=== PATIENT | female | born 1950 | race Caucasian/White ===

== ENCOUNTER 2019-09-25 15:57 | Inpatient (IN) ==
[2019-09-25] MEDS ORDERED: NS 1,000 ML IV ONE (16:28)
[2019-09-25] MEDS ORDERED: HUMULIN R IV ONE (16:28)
[2019-09-25] MEDS ORDERED: CARDIZEM IV ONE (16:28)
[2019-09-25] MEDS ORDERED: ZOSYN 4.5 GM in NS 100 ML IV ONE (16:28)
[2019-09-25] MEDS ORDERED: VANCOMYCIN 1 GM/NS 1 GM/250 ML IVPB IV ONE (16:28)
[2019-09-25] MEDS ORDERED: LOVENOX 1 MG/KG SUBQ ONE (16:30)
[2019-09-25 16:49] LABS: BE 2.1 mmoll (-3.0-3.0); BLOOD TYPE ARTERIAL; HCO3-(ACT) 26.5 mmoll (20.0-26.0); O2(CT) 19.2 mL/dL (15.0-23.0); PCO2(98.6) 35 mmHg (35-45); PO2(98.6) 86 mmHg (60-100); SAMPLE BLOOD; SAO2 97.6 % (95.0-100.0); THB 14.3 g/dL (11.5-17.4); pH(98.6) 7.47 (7.35-7.45)
[2019-09-25 16:50] LABS: ALLEN TEST NO; MODALITY ROOM AIR
--- NOTE | 2019-09-25 16:53 | EKG Report ---
Test Performed on : 09/25/2019 4:14:23 PM Test Reason : tachycardia Blood Pressure : / mmHG Vent. Rate : 154 BPM Atrial Rate : 159 BPM P-R Int : 000 ms QRS Dur : 108 ms QT Int : 284 ms P-R-T Axes : 000 081 -33 degrees QTc Int : 454 ms Atrial fibrillation. with rapid ventricular response. Right bundle branch block T wave abnormality, consider inferior ischemia Abnormal ECG No previous ECGs available Unconfirmed Result
[2019-09-25] MEDS ORDERED: HUMULIN R (PARKWAY) ONE (17:07)
[2019-09-25] MEDS ORDERED: LOVENOX SUBQ ONE (17:45)
--- NOTE | 2019-09-25 17:52 | Diag Imaging Result Doc PS360 ---
EXAM: CHEST-1 VIEW 09/25/2019 HISTORY: sob TECHNIQUE: AP portable at 1742 COMMENT: There are no previous studies. There is no evidence of acute cardiac or pulmonary disease. IMPRESSION: No acute disease. Electronically signed by Wili Dugan 09/25/2019 5:50 PM
[2019-09-25 17:53] LABS: INFLUENZA A NEGATIVE (NEGATIVE); INFLUENZA B NEGATIVE (NEGATIVE)
[2019-09-25 17:54] LABS: INR 0.85
[2019-09-25 18:00] LABS: BASO# 0.01 X1000 (0.0-0.2); BASO% 0.1 % (0.0-0.8); HEMATOCRIT 42.9 % (37.0-47.0); HEMOGLOBIN 14.1 g/dL (12.0-16.0); IMM GRAN% 1.4 % (0.0-0.5); LYMPH# 0.58 X1000 (1.2-3.4); LYMPH% 4.1 % (20.5-51.1); MCHC 32.9 g/dL (33-37); MCV 91.3 FL (81-99); MONO# 0.57 X1000 (0.11-0.59); MPV 10.5 FL (7.4-10.4); NEUT# 12.85 X1000 (1.4-6.5); NEUT% 90.4 % (42.2-75.2); PLT 237 X1000 (130-400); RDW 12.1 % (11.5-14.5); WBC 14.21 X1000 (4.8-10.8)
[2019-09-25] MEDS ORDERED: LOPRESSOR IV ONE (18:04)
[2019-09-25 18:10] LABS: ESTIMATED GFR > 60
[2019-09-25 18:18] LABS: AGAP 18; ALBUMIN 3.9 g/dL (3.5-5.0); ALKALINE PHOSPHATASE 189 U/L (32-104); BUN 50 mg/dL (8-22); CALCIUM 9.5 mg/dL (8.8-10.2); CHLORIDE 92 mmol/L (98-107); CK PROFILE 76 U/L (24-173); COSMO 298; CREATININE 0.9 mg/dL (0.5-0.9); GLUCOSE 455 mg/dL (70-104); GOT 56 U/L (10-30); GPT 154 U/L (10-36); MAGNESIUM 2.6 mg/dL (1.5-2.7); POTASSIUM 5.1 mmol/L (3.5-5.1); SODIUM 132 mmol/L (136-145); TCO2 21 mmol/L (25-35); TOTAL PROTEIN 6.4 g/dL (6.3-8.3)
--- NOTE | 2019-09-25 18:24 | PROVIDER DOCUMENTATION ---
This chart was entered by Josseline Mckeon Scribe, acting as scribe for Roby Christensen MD. 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 pt arrived w/ rapid HR in 170s and in afib. pt has no hx of afib. does not feel palpitations. pt is seen by wound clinic every tues for ulcers on rt leg. pt has been on steroids rx by Dr. Soto. hx of dm. no fever. Location of Pain/Injury: reports: lower extremity (ulcers rt leg) Pain Radiation: reports: no radiation Severity: reports: mild Onset/Duration: reports: other Timing: reports: still present Context/Activities at Onset: reports: none Modifying Factors: improves with: nothing Associated Symptoms: reports: cough, shortness of breath. denies: fever/chills Review of Systems - Adult - REVIEW OF SYSTEMS - ADULT Constitutional: reports: no symptoms reported. denies: chills, fever, fatique Eyes: reports: no symptoms reported Ears, Nose, Mouth & Throat: reports: no symptoms reported Cardiovascular: reports: see HPI, irregular heart rate (new onset afib). denies: chest pain, poor circulation, syncope Respiratory: reports: see HPI, cough, shortness of breath (mild). denies: hemoptysis, pleurisy, wheezing Gastrointestinal: reports: no symptoms reported Genitourinary: reports: no symptoms reported Musculoskeletal: reports: no symptoms reported Integumentary: reports: see HPI, skin sores/ulcer (on rt leg, followed by wound care), other (skin tears left hand). denies: hives, itching, skin thickening Neurological: reports: see HPI, loss of balance (fall at work today no injury). denies: dizziness/vertigo, headache/migraines, syncope, tremors Psychiatric: reports: no symptoms reported Endocrine: reports: no symptoms reported Hematologic/Lymphatic: reports: no symptoms reported Allergic/Immunologic: reports: no symptoms reported All Other Systems: Reviewed and Negative Past History - Adult - PAST MEDICAL HISTORY-ADULT Review of Records: reports: Nursing Assessment Review, Medications Reviewed, Social history reviewed & non-contributory. Major Childhood Illnesses: reports: denies history Cardiovascular: reports: denies history Respiratory: reports: denies history Gastrointestinal: reports: denies history Obstetrical/Gynecological: reports: denies history Genitourinary: reports: denies history Musculoskeletal: reports: denies history Neurological: reports: denies history Endocrine/Immune: reports: Diabetes Other Conditions: reports: denies history - IMMUNIZATION STATUS Childhood Immunizations: See Nurse Assessment Flu Vaccine: See Nurse Assessment - FAMILY HISTORY Family History: reviewed, not pertinent Physical Exam-General - PHYSICAL EXAM-ADULT Initial Vital Signs Reviewed: Yes - CONSTITUTIONAL General Appearance: alert, no apparent distress. negative: cachetic, lethargic, slow to respond - EYES Eyes: PERRL/EOMI - HEAD, EARS, NOSE, MOUTH & THROAT HENMT: normocephalic/atraumatic, moist mucous membranes - NECK Neck: non-tender, full range of motion, supple, normal inspection - RESPIRATORY Respiratory: chest non-tender, lungs clear, no pleuratic chest pain, no respi ratory distress, no accessory muscle use, decreased breath sounds (diminshed). negative: normal breath sounds, respiratory distress, crackles, rales, rhonchi - CARDIOVASCULAR Cardiovascular: normal peripheral pulses, no edema, no gallop, no JVD, no murmur , tachycardia, irregularly irregular. negative: regular rate, rhythm, JVD, bradycardia, friction rub - GASTROINTESTINAL (ABDOMEN) Abdominal Exam: normal bowel sounds, non tender, soft - MUSCULOSKELETAL Back Exam: normal inspection Extremity: normal range of motion, non-tender, normal inspection, no pedal edema , no calf tenderness, normal capillary refill, pelvis stable - SKIN Integumentary: normal color, normal turgor, warm/dry, other (4 healing ulcer on rt leg, some erythema and d/c. skin tear left hand, bandage in place.). negative: abrasion(s), ecchymosis, rash - NEUROLOGIC Neurologic: grossly normal, no motor/sensory deficits - PSYCHIATRIC Psych/Mental Status: normal mood/affect, normal thought content, normal thought process, oriented x 3 Progress - PLAN OF CARE/RESULTS Progress/Plan/Lab Results: Vital Signs - 8 hr 09/25/19 16:03 Temperature 97.7 F Pulse Rate 167 H Respiratory Rate 20 Blood Pressure 118/81 O2 Sat by Pulse Oximetry 97 Result Diagrams: 09/25/19 17:26 09/25/19 17:26 - REASSESSMENT Reassessment #1 Time Reassessed: 18:05 Status: improving (HR 109 after IV cardizem, still in AFIB. Will administer IV lopressor to further lower rate. Awaiting labs.) - EKG 1 Time of EKG reading by physician:: 16:15 EKG Read and Signed by:: Roby Christensen EKG Interpretation (*Must complete 3 of following elements*): Abnormal Rate: 154 Rhythm: afib w/ rvr [place]: normal QRS: RBB PA Interval: normal ST Wave: non-specific ST changes Prior EKG Comparison: no prior EKG 2 Time of EKG reading by physician:: 18:23 EKG Read and Signed by:: Roby Christensen EKG Interpretation (*Must complete 3 of following elements*): Abnormal Rate: 109 Rhythm: afib QRS: RBB, poor R wave progression ST Wave: non-specific ST changes Prior EKG Comparison: changes noted (decreased rate) - XRAY 1 XRAY Study: Chest Impression: Normal, See EMR Report ( EXAM: CHEST-1 VIEW 09/25/2019 HISTORY: sob TECHNIQUE: AP portable at 1742 COMMENT: There are no previous studies. There is no evidence of acute cardiac or pulmonary disease. IMPRESSION: No acute disease. Electronically signed by Wili Dugan 09/25/2019 5:50 PM) Comparison with other Films: no prior study - CONSULTS/PCP/HOSPITALIST Notification #1 *Consult/PCP/Hospitalist*: Marilyn Time Discussed: 18:05 Consult Disposition: Will see in ED, Admit Departure - Departure Date of Disposition Decision: 09/25/19 Time of Disposition Decision: 18:06 DIAGNOSIS: New onset a-fib, Atrial fibrillation with RVR, Diabetic ulcer of right lower leg associated with type 2 diabetes mellitus, limited to breakdown of skin, Syncope, near, Congestive heart failure of unknown etiology Disposition: ADMITTED INPATIENT 09 Certified Medical Emergency: Emergent Condition: Stable Referrals and Follow-Ups: Raven Leigh CRNP [Primary Care Provider] - - Critical Care Note This patient required my direct & personal management of CC.: Yes Total Time (mins): 45 Critical Care Statement: This patient required my direct personal management to treat or rule out processes, the absence of which, could potentiallly result in sudden, clinically significant life or limb threatening deterioration. Attestation - Physician/ ZARI Attestation Patient care was provided by Advanced Practice Provider:: No The physician spent face to face time with patient:: Yes Advanced Practice Provider documentation review:: Supervising physician onsite and consulted in the evaluation and care of this patient. The physician did have a face to face encounter with the patient. This chart was documented by the indicated scribe, (Josseline Mckeon Scribe) and accurately reflects the services I performed and decisions made by me, Roby Christensen MD, as attested by the provider's signature.
--- NOTE | 2019-09-25 18:32 | EKG Report ---
Test Performed on : 09/25/2019 6:19:18 PM Test Reason : repeat for conversion Blood Pressure : / mmHG Vent. Rate : 109 BPM Atrial Rate : 061 BPM P-R Int : 000 ms QRS Dur : 106 ms QT Int : 380 ms P-R-T Axes : 000 080 -13 degrees QTc Int : 511 ms Undetermined rhythm Incomplete right bundle branch block Nonspecific T wave abnormality Abnormal ECG When compared with ECG of 25-SEP-2019 16:14, (Unconfirmed) Current undetermined rhythm precludes rhythm comparison, needs review Unconfirmed Result
[2019-09-25 18:57] LABS: PTT < 20.0 Seconds (22.3-41.8)
[2019-09-25 19:05] LABS: URINE SOURCE CLEAN CATCH
[2019-09-25 19:07] LABS: BILIRUBIN URINE NEGATIVE (NEGATIVE); BLOOD URINE NEGATIVE (NEGATIVE); COLOR YELLOW; GLUCOSE URINE >1000 mg/dL (NEGATIVE); KETONE URINE TRACE mg/dL (NEGATIVE); LEUKOCYTES URINE SMALL (NEGATIVE); NITRITE URINE NEGATIVE (NEGATIVE); PROTEIN URINE NEGATIVE (NEGATIVE); SP GRAVITY URINE 1.028; TURBIDITY URINE CLEAR (CLEAR); UROBILINOGEN URINE NORMAL (NORMAL)
[2019-09-25 19:08] LABS: UR EPITHELIAL CELLS <10 /HPF (<10); URINE BACTERIA 2+ /HPF; URINE RBC <10 /HPF (<10); URINE WBC <10 /HPF (<10)
[2019-09-25] MEDS ORDERED: HUMALOG (PARKWAY) SUBQ SCH (21:00)
[2019-09-25] MEDS ORDERED: ZOFRAN IV PRN (21:05)
[2019-09-25] MEDS ORDERED: TYLENOL PO PRN (21:05)
[2019-09-25] MEDS: HUMALOG SUBQ SCH (22:39)
[2019-09-25] MEDS: CARDIZEM 100 MG/NS 100 MG/100 ML IVPB IV SCH (23:39)
[2019-09-26] MEDS ORDERED: CALMOSEPTINE OINTMENT TOP PRN (00:33)
[2019-09-26] MEDS: ZOSYN 3.375 GM in NS 50 ML IV SCH ×5 (01:52→22:42)
[2019-09-26] MEDS: NS 1,000 ML IV SCH ×3 (01:53→17:12)
--- NOTE | 2019-09-26 02:05 | HISTORY AND PHYSICAL ---
CHIEF COMPLAINT: Palpitations. HISTORY OF PRESENT ILLNESS: Patient is a 69-year-old female who noted that she fell backwards today while she was at work. She had some minor skin tears, shortness of breath. Coughing for a week. Notes she went to the [facility] today for a prescheduled appointment and was noted that she had an elevated heart rate and was asked to come to the ER where she was noted to have heart rate of 170s and was in atrial fibrillation. ALLERGIES: Iodine and shellfish. REVIEW OF SYSTEMS: As noted above. Patient notes that her heart rate has been elevated today, but denies any previous elevations in her heart rate. Denies any previous palpitations, chest pain. Denies any known coronary artery disease. Denies shortness of breath, dysuria, urinary frequency. Denies hesitancy, polyuria, polydipsia. Denies skin rashes, weight loss or weight gain. Notes that she has been tired and fatigued. She fell today after losing her balance. PAST MEDICAL HISTORY: Diabetes. FAMILY HISTORY: Noncontributory. SOCIAL HISTORY: Patient lives at home. Denies smoking. Does not drink or use illicit substances. PHYSICAL EXAMINATION: VITAL SIGNS: Reviewed. Temperature 97.7 degrees, pulse 167, currently 101 after her Cardizem, respiratory 20, BP 118/81. GENERAL: Patient is awake, alert. She is in no current respiratory distress. HEENT: Normocephalic. NECK: Supple. CARDIOVASCULAR: Irregular rate. Irregular rhythm. CHEST: Clear and nonlabored. ABDOMEN: Soft, nondistended. EXTREMITIES: She moves all extremities. SKIN: She has an Unna boot on the right leg. Left lower extremity skin is shiny, positive edema. NEUROLOGIC: She is awake, alert, oriented, pleasant to talk with. LABORATORIES: WBCs 14. Glucose 455. ASSESSMENT: 1. New onset atrial fibrillation with rapid ventricular response. 2. Diabetic ulcer, right lower extremity. 3. Syncope. 4. Congestive heart failure. 5. Diabetes. PLAN: We are going to admit the patient to the hospital. Fluids rate control, sliding scale insulin, antibiotics, and we will follow. We will continue with wound [*] cc: Rupert Sanders MD
[2019-09-26 06:51] LABS: HEMATOCRIT 39.2 % (37.0-47.0); HEMOGLOBIN 12.7 g/dL (12.0-16.0); MCHC 32.4 g/dL (33-37); MCV 92.5 FL (81-99); MPV 10.2 FL (7.4-10.4); RBC 4.24 XMIL (4.2-5.4); RDW 12.1 % (11.5-14.5); WBC 12.66 X1000 (4.8-10.8)
[2019-09-26 07:16] LABS: AGAP 11; ALB/GLOB RATIO 1.6; ALBUMIN 3.2 g/dL (3.5-5.0); ALKALINE PHOSPHATASE 133 U/L (32-104); BUN 38 mg/dL (8-22); CALCIUM 8.6 mg/dL (8.8-10.2); CHLORIDE 101 mmol/L (98-107); COSMO 288; CREATININE 0.9 mg/dL (0.5-0.9); ESTIMATED GFR > 60; GLUCOSE 87 mg/dL (70-104); GOT 39 U/L (10-30); GPT 118 U/L (10-36); POTASSIUM 4.7 mmol/L (3.5-5.1); SODIUM 140 mmol/L (136-145); TCO2 28 mmol/L (25-35); TOTAL BILIRUBIN 0.62 mg/dL (0.20-1.00); TOTAL PROTEIN 5.2 g/dL (6.3-8.3)
[2019-09-26] MEDS: LOVENOX SUBQ SCH ×2 (08:08→21:31)
[2019-09-26] MEDS: HUMALOG SUBQ SCH ×4 (08:10→21:22)
[2019-09-26] MEDS: CARDIZEM 100 MG/NS 100 MG/100 ML IVPB IV SCH ×2 (08:35→18:48)
--- NOTE | 2019-09-26 09:31 | CARDIOLOGY CONSULTATION ---
DATE: 09/26/2019 CHIEF COMPLAINT ON PRESENTATION: Patient was at Wound Care and was told that she had an irregular heart rate. HISTORY OF PRESENT ILLNESS: Ms Larsen is a 69-year-old female with a history of diabetes and chronic lower extremity wounds. She was at Wound Care yesterday getting her usual care when she was told by the staff there that she had an irregular heart rate and was told to be evaluated in the ER. On presentation, she was noted to be in new onset atrial fibrillation with a rate of 167 beats per minute. The patient denies any overt chest pain, sensation of palpitations or shortness of breath. She is minimally active at home. She does not really do anything other than her activities of daily living. She does not participate in daily exercise. She denies any overt orthopnea. She has not been having any chest pain. PAST MEDICAL HISTORY: 1. Significant for diabetes. 2. Chronic lower extremity wounds. 3. Hyperlipidemia. 4. Hypertension. 5. Diabetic neuropathy. SOCIAL HISTORY: She does not currently smoke. 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 She does not drink alcohol. FAMILY HISTORY: Hypertension. REVIEW OF SYSTEMS: A 10 system review of systems is negative except for those things mentioned in HPI. PHYSICAL EXAMINATION: Vital signs: She is afebrile. Heart rate is 96, blood pressure 126/71. Generally: She is in no acute distress. HEENT: Oropharynx is moist. Poor dentition. Eye examination shows pink conjunctivae, white sclerae. Neck: No obvious thyromegaly or thyroid tenderness. Cardiovascular: She sounds to be in an irregularly irregular rhythm. This is consistent with atrial fibrillation on her telemetry. She has no lower extremity edema. She has a bandaged wounds on her bilateral lower extremities. Chest: Sounds relatively clear. She has no increased work of breathing. Abdomen: Soft, nontender, nondistended. She has no obvious organomegaly. Skin: Warm and dry throughout without any rashes. Neurological: She is moving all extremities well. She has no lateralizing deficits. PERTINENT DATA: Initial EKG on the at 4:14 p.m. shows atrial fibrillation, rate of 154 beats per minute, right bundle branch block is present. Her subsequent EKG on the at 6:19 again shows atrial fibrillation, right bundle branch block, rate of 109 beats per minute. She had a chest x-ray that demonstrates no evidence of acute disease. Laboratory data shows a white count of 12.6, hematocrit of 39, platelet count of 195,000. Her sodium today is 140, potassium is 4.7, her BUN is 38, creatinine 0.9, yesterday was 58 and 0.9 respectively. Her glucose yesterday was 455 with a normal anion gap. Her AST and ALT are 39 and 118 respectively, which has improved slightly. Her albumin is 3.2. Magnesium level yesterday was 2.6. She had a urinalysis with a small amount of leukocytes, trace ketones, 2+ bacteria. Her influenza screen was negative. She has a TSH pending as well as an echocardiogram. ASSESSMENT: Ms. Larsen is a 69-year-old white female who presented with new onset atrial fibrillation. PLAN: She is on anticoagulation right now on the form of Lovenox. We will continue for the time being. We will plan on cardioversion today. Risks, benefits, and alternatives to NICOLE cardioversion have been discussed with the patient and she agrees to proceed. Presently, she has no complaints. Further recommendations to follow the procedure. cc: MD Inocencio Monique MD
--- NOTE | 2019-09-26 14:31 | ECHO REPORT ---
ORDER DATE: 09/26/2019 INTERPRETING PHYSICIAN: Carlos Salmeron MD. ECHOCARDIOGRAPHIC MEASUREMENTS: 1. Interventricular septum 1.0. 2. Left ventricular posterior wall 0.8. 3. Diastolic diameter 4.5. 4. Left atrium 4.0. 5. Aorta 2.6. SUMMARY OF THE 2-DIMENSIONAL FINDINGS: 1. Aortic valve leaflets are trileaflet. 2. Pulmonic valve is normal. Trace pulmonary regurgitation noted. 3. Tricuspid valve is normal. 4. Mitral valve is normal. There is left atrial enlargement. 5. There is mild mitral regurgitation. Mild tricuspid regurgitation. Peak velocity across the tricuspid valve is 2.6 m/sec. Pulmonary artery systolic pressure of 36 mmHg. 6. Peak velocity across the aortic valve less than 2 m/sec. There is no aortic stenosis. There is mild aortic regurgitation. 7. Atrial fibrillation is noted. 8. Normal left ventricular cavity size. Estimated ejection fraction of 65%. 9. In the right atrium, prominent echogenic structure noted measuring 1.4 x 2.8 cm. This could be a remnant of the eustachian valve, however, it is more echogenic. Would recommend a transesophageal echocardiogram to better evaluate the structure. 10. There is no pericardial effusion. cc: MD Rupert Hernandez MD Alexis R. Penot, MD
[2019-09-26] MEDS: NORCO-7.5 PO PRN (15:22)
--- NOTE | 2019-09-26 15:57 | PROGRESS NOTE ---
DATE: 09/26/2019 SUBJECTIVE: Patient has no major complaints. OBJECTIVE: Blood pressure is 131/67, heart rate 96, respiratory rate 20, temperature 97.8 degrees, 98% on room air.Cardiovascular: Regular rate and rhythm. Pulmonary: Bilateral breath sounds, clear to auscultation. GI: Soft, nontender, nondistended. Bowel sounds are positive. PROBLEM LIST: 1. Atrial fibrillation with rapid ventricular response. We will continue treatment which includes Cardizem. I think she qualifies for anticoagulation. She is 69. She is female. She is diabetic and she is on Lovenox b.i.d. I may be able to switch her to something else. 2. The plan looks like is for cardioversion on Sunday. 3. Diabetes. We will continue regular medications and follow. 4. Chronic diabetic ulcers. She is getting Unna boots periodically. We will continue to follow. cc: Inocencio Olvera MD
[2019-09-27] MEDS: NORCO-7.5 PO PRN (00:21)
[2019-09-27] MEDS: CARDIZEM 100 MG/NS 100 MG/100 ML IVPB IV SCH ×2 (04:16→15:24)
[2019-09-27] MEDS: ZOSYN 3.375 GM in NS 50 ML IV SCH ×5 (04:16→21:31)
[2019-09-27 05:54] LABS: BASO# 0.01 X1000 (0.0-0.2); BASO% 0.1 % (0.0-0.8); EOS# 0.05 X1000 (0.0-0.7); EOS% 0.4 % (0.0-10.0); HEMATOCRIT 38.4 % (37.0-47.0); HEMOGLOBIN 12.4 g/dL (12.0-16.0); IMM GRAN# 0.13 X1000 (0.0-0.04); IMM GRAN% 1.1 % (0.0-0.5); LYMPH# 1.55 X1000 (1.2-3.4); LYMPH% 13.3 % (20.5-51.1); MCHC 32.3 g/dL (33-37); MONO% 4.3 % (1.7-9.3); NEUT# 9.45 X1000 (1.4-6.5); NEUT% 80.8 % (42.2-75.2); PLT 172 X1000 (130-400); RBC 4.13 XMIL (4.2-5.4); RDW 12.2 % (11.5-14.5); WBC 11.69 X1000 (4.8-10.8)
[2019-09-27] MEDS: HUMALOG SUBQ SCH ×4 (06:20→20:51)
[2019-09-27] MEDS: NS 1,000 ML IV SCH ×2 (11:42→15:24)
[2019-09-27] MEDS: LOVENOX SUBQ SCH ×2 (11:42→20:17)
--- NOTE | 2019-09-27 15:59 | PROGRESS NOTE ---
DATE: 09/27/2019 SUBJECTIVE: The patient denies chest discomfort or shortness of breath on room air. OBJECTIVE: Vital signs: Blood pressure 138/80, heart rate 98. Oxygen saturation 97%. HEENT: There is no significant jugular venous distention. Chest: Clear to auscultation. Cardiac Exam: Reveals an irregular rate and rhythm without appreciable murmur or gallop. There is no evidence of peripheral edema. LABORATORY DATA: Includes a white blood cell count 11.69, hematocrit 38.4, hemoglobin 12.4, platelet count 172. IMPRESSION: 1. Atrial fibrillation with rapid ventricular rate of unknown duration. She still has some mild tendency for tachycardia despite intravenous Cardizem. 2. Diabetes mellitus. 3. Chronic lower extremity wounds. 4. Hypertension. 5. Hyperlipidemia. 6. Diabetic neuropathy. RECOMMENDATIONS: 1. Continue intravenous Cardizem. 2. Add low-dose metoprolol. 3. Continue anticoagulation for NICOLE cardioversion planned for Sunday. This was discussed with the patient and her family. cc: MD Inocencio Lewis MD
[2019-09-27] MEDS: NEURONTIN PO SCH (17:00)
[2019-09-27] MEDS: PREDNISONE PO SCH (17:01)
--- NOTE | 2019-09-27 17:26 | PROGRESS NOTE ---
DATE: 09/27/2019 SUBJECTIVE: The patient has no major complaints. Jntur-ragy-urgj pain is better. Still gets some shortness of breath with exertion. OBJECTIVE: vital signs: Blood pressure 138/80, heart rate of 98, respiratory rate of 20, temperature 98 degrees, and 97% on room air. Cardiovascular: She is still irregularly irregular. Pulmonary: Bilateral breath sounds. Clear to auscultation. Gastrointestinal: Soft, nontender, nondistended. Bowel sounds are positive Lower Extremities: There is no peripheral edema. LABORATORIES: White count 11, hemoglobin and hematocrit 12 and 38, platelets of 172,000. Electrolytes today. PROBLEM LIST: 1. Atrial fibrillation with rapid ventricular response. She is still on a Cardizem drip. She is anticoagulated with Lovenox for the time being. Her CHADSVASC score is above 2 and will need chronic anticoagulation. Dr. Bach has added beta blockers today because she is still somewhat tachycardic and anticipate cardioversion on Sunday. 2. Type 2 diabetes. We will resume her regular medications. They had not been resumed until today. Bydureon and several of her other medications. DISPOSITION: Pending her clinical status. Her EF is intact. It looks like based on this echo she needs a NICOLE which I guess she is going to get on Sunday. We will continue to follow. cc: Inocencio Olvera MD [facility]
[2019-09-27] MEDS: LOPRESSOR PO SCH (20:17)
[2019-09-27] MEDS: LIPITOR PO SCH (20:17)
[2019-09-28] MEDS: CARDIZEM 100 MG/NS 100 MG/100 ML IVPB IV SCH ×2 (00:37→20:53)
[2019-09-28] MEDS: NS 1,000 ML IV SCH (03:27)
[2019-09-28] MEDS: ZOSYN 3.375 GM in NS 50 ML IV SCH ×5 (03:27→21:00)
[2019-09-28] MEDS: HUMALOG SUBQ SCH ×4 (06:14→20:53)
[2019-09-28 07:26] LABS: HEMATOCRIT 38.4 % (37.0-47.0); HEMOGLOBIN 12.2 g/dL (12.0-16.0); LYMPH# 1.09 X1000 (1.2-3.4); LYMPH% 9.3 % (20.5-51.1); MCH 29.6 PG (27-31); MCHC 31.8 g/dL (33-37); MCV 93.2 FL (81-99); MONO# 0.38 X1000 (0.11-0.59); MONO% 3.2 % (1.7-9.3); MPV 9.8 FL (7.4-10.4); PLT 189 X1000 (130-400); RBC 4.12 XMIL (4.2-5.4); RDW 12.1 % (11.5-14.5); WBC 11.78 X1000 (4.8-10.8)
[2019-09-28 08:18] LABS: LYMPHS 13 % (21-51); MONO 4 % (1-9); SEGS 83 % (42-75)
[2019-09-28] MEDS: VITAMIN D PO SCH (08:56)
[2019-09-28] MEDS: PROTONIX PO SCH (08:56)
[2019-09-28] MEDS: LOPRESSOR PO SCH ×2 (08:56→20:52)
[2019-09-28] MEDS: ASPIRIN PO SCH (08:56)
[2019-09-28] MEDS: LOVENOX SUBQ SCH ×2 (08:56→20:53)
[2019-09-28] MEDS: PREDNISONE PO SCH ×3 (08:56→17:01)
[2019-09-28] MEDS: NEURONTIN PO SCH ×3 (08:56→17:00)
[2019-09-28] MEDS: VITAMIN B-12 PO SCH (08:56)
[2019-09-28] MEDS: PATIENT'S OWN MED PO SCH (08:57)
[2019-09-28] MEDS: HYZAAR 100/12.5 MG TAB PO SCH (10:29)
[2019-09-28] MEDS ORDERED: LASIX IV ONE (15:39)
--- NOTE | 2019-09-28 16:08 | PROGRESS NOTE ---
DATE: 09/28/2019 SUBJECTIVE: Patient continues without chest discomfort or shortness of breath on room air. She remains in atrial fibrillation. OBJECTIVE: Vital Signs: Blood pressure 138/79, heart rate 93 and irregular with ECG monitor showing atrial fibrillation. Oxygen saturation 99% on room air. There is no significant jugular venous distention. Chest: Clear to auscultation. Cardiac: Reveals an irregular rate and rhythm without appreciable murmur or gallop. Extremities: There is no evidence of pedal edema. LABORATORY DATA: Includes a white blood cell count 11.7, hematocrit 38.4, hemoglobin 12.2, and platelet count 189,000. IMPRESSION: 1. Atrial fibrillation of unknown duration initially with rapid ventricular rate. Heart rate better controlled. 2. Diabetes mellitus. 3. Chronic lower extremity wounds. 4. Hypertension. 5. Hyperlipidemia. 6. Diabetic neuropathy. RECOMMENDATIONS: 1. Continue intravenous Cardizem. 2. Continue low-dose metoprolol. 3. Given persistence of atrial fibrillation, NICOLE cardioversion planned for tomorrow. This has been discussed with the patient and her family. cc: MD Inocencio Lewis MD
--- NOTE | 2019-09-28 16:23 | PROGRESS NOTE ---
DATE: 09/28/2019 SUBJECTIVE: The patient has no major complaints except she had bleeding in both her hands. OBJECTIVE: Vital signs: Blood pressure 138/79, heart rate of 93, respiratory rate of 18, temperature 97.6 degrees. LABORATORY DATA: White count 11, hemoglobin and hematocrit 12 and 38, platelets of 189,000. ASSESSMENT AND PLAN: 1. Atrial fibrillation with rapid ventricular response. She is still in atrial fibrillation. She is on Cardizem and metoprolol. 2. Type 2 diabetes. She is stable on her current medication. She is getting Bydureon. She has had that before. 3. Disposition. Plan is for cardioversion tomorrow and we will continue to monitor. She is anticoagulated but she had significant bleeding associated with it this morning. Her right hand is quite swollen. I am a little concerned about compartment syndrome, so we will continue to monitor and follow closely. cc: Inocencio Olvera MD
[2019-09-28] MEDS: LIPITOR PO SCH (20:52)
[2019-09-29] MEDS: ZOSYN 3.375 GM in NS 50 ML IV SCH ×3 (03:10→19:06)
[2019-09-29] MEDS: HUMALOG SUBQ SCH ×4 (07:04→21:54)
[2019-09-29 07:09] LABS: HEMATOCRIT 36.7 % (37.0-47.0); HEMOGLOBIN 11.9 g/dL (12.0-16.0); MCH 29.8 PG (27-31); MCHC 32.4 g/dL (33-37); MPV 10.1 FL (7.4-10.4); RBC 3.99 XMIL (4.2-5.4); WBC 9.89 X1000 (4.8-10.8)
[2019-09-29 07:12] LABS: INR 1.12; PROTIME 14.5 Seconds (11.0-16.0)
[2019-09-29 07:30] LABS: AGAP 11; BUN 18 mg/dL (8-22); CALCIUM 8.7 mg/dL (8.8-10.2); CHLORIDE 106 mmol/L (98-107); COSMO 286; CREATININE 0.7 mg/dL (0.5-0.9); ESTIMATED GFR > 60; GLUCOSE 143 mg/dL (70-104); POTASSIUM 3.4 mmol/L (3.5-5.1); SODIUM 141 mmol/L (136-145); TCO2 24 mmol/L (25-35)
[2019-09-29] MEDS ORDERED: XYLOCAINE 2% VISCOUS ONE (08:38)
[2019-09-29] MEDS ORDERED: SODIUM CHLORIDE 0.9% 20 ML ONE (08:38)
[2019-09-29] MEDS ORDERED: XYLOCAINE 4% TOPICAL SOLUTION ONE (08:38)
[2019-09-29] MEDS: PREDNISONE PO SCH ×3 (08:40→17:16)
[2019-09-29] MEDS: ASPIRIN PO SCH (08:40)
[2019-09-29] MEDS: PROTONIX PO SCH (08:40)
[2019-09-29] MEDS: VITAMIN B-12 PO SCH (08:40)
[2019-09-29] MEDS ORDERED: HURRICAINE SPRAY ONE (08:41)
[2019-09-29] MEDS: PATIENT'S OWN MED PO SCH (08:41)
[2019-09-29] MEDS: HYZAAR 100/12.5 MG TAB PO SCH (08:41)
[2019-09-29] MEDS: LOVENOX SUBQ SCH (08:41)
[2019-09-29] MEDS: LOPRESSOR PO SCH ×3 (08:41→21:53)
[2019-09-29] MEDS: VITAMIN D PO SCH (08:41)
[2019-09-29] MEDS: NEURONTIN PO SCH ×3 (08:44→17:17)
[2019-09-29] MEDS ORDERED: NS 1,000 ML ONE (09:12)
[2019-09-29] MEDS ORDERED: CLAVE TWINSITE 32 IN 11959 ONE (09:13)
[2019-09-29] MEDS ORDERED: ANESTHESIA PB SET 88 IN 5742 ONE (09:14)
[2019-09-29] MEDS ORDERED: XYLOCAINE-MPF 1% 5 ML ONE (09:29)
[2019-09-29] MEDS ORDERED: DIPRIVAN 1% ONE (09:29)
[2019-09-29] MEDS ORDERED: LOPRESSOR ONE (10:01)
--- NOTE | 2019-09-29 10:13 | EKG Report ---
Test Performed on : 09/29/2019 08:53:40 AM Test Reason : afib Blood Pressure : / mmHG Vent. Rate : 095 BPM Atrial Rate : 267 BPM P-R Int : 000 ms QRS Dur : 110 ms QT Int : 388 ms P-R-T Axes : 000 071 -20 degrees QTc Int : 487 ms Atrial fibrillation. Right bundle branch block T wave abnormality, consider inferior ischemia Abnormal ECG When compared with ECG of 25-SEP-2019 18:19, (Unconfirmed) Previous ECG has undetermined rhythm, needs review Confirmed by Rajinder Barraza MD ([id number]) on 09/30/2019 7:40:47 AM
--- NOTE | 2019-09-29 11:00 | Transesophageal Echocardiogram ---
DATE: 09/29/2019 PHYSICIAN: Dr. Armijo REQUESTING PHYSICIAN: CLINICAL INDICATIONS: The patient is with persistent atrial fibrillation. Dr. Salmeron and Dr. Mcmauns recommended NICOLE cardioversion. PROCEDURE: Transesophageal echocardiography DESCRIPTION: The benefits, risks and complications were already discussed with her. The patient came in to the cardiac refuse laborer and received intravenous anesthesia under the services of Dr. Fuller. The throat was anesthetized with viscous lidocaine and Hurricaine. The esophagus was intubated without difficulty. Multiple views of the cardiac structures were obtained. SUMMARY OF MAIN FINDINGS: The left ventricular systolic function appears to be at the lower limits of normal, estimated at 55%. The mitral valve opens normally. It shows moderately severe degree of regurgitation. Aortic valve shows sclerosis of the cusps without stenosis. There is mild degree of aortic regurgitation. Tricuspid valve showed mild degree of regurgitation. The right atrium and right ventricle appeared to be normal. Pulmonic valve is unremarkable. The interatrial septum is intact. There is no evidence of shunt from right to left or left to right. Agitated saline was injected. The left atrium is enlarged. The left atrial appendage is well visualized. It shows a spontaneous echocontrast of moderate severity. Flow velocities within the appendage are significantly decreased, less than 20 cm per second. No thrombus was noted. The flow in the pulmonary veins shows the typical pattern of predominant diastolic component as noted in persistent atrial fibrillation. There is no pericardial effusion. Descending thoracic aorta shows extensive calcific plaque from the thoracic portion of the aorta all the way to the arch and origin of the subclavian artery. There is no mobile debris or ulcerations. The patient tolerated the procedure well. CONCLUSIONS: In summary, this transesophageal echocardiogram shows the presence of 3 markers for increased thromboembolic phenomena: 1. Spontaneous echocontrast within the left atrial appendage of moderate severity. 2. Low flow velocities within the appendage of less than 20 cm per second. 3. Extensive calcific plaque in the thoracic aorta. There is no contraindication to proceeding with cardioversion; however, the patient has to be advised to stay on lifelong anticoagulation for prevention of stroke. cc: MD Mac Veras MD Alexis R. Penot, MD MTDD
--- NOTE | 2019-09-29 11:02 | CARDIAC CATH REPORT ---
DATE: 09/29/2019 PROCEDURE PERFORMED: Direct current cardioversion. INDICATION: Persistent atrial fibrillation. DIAGNOSIS: Persistent atrial fibrillation. DESCRIPTION OF PROCEDURE: The patient was brought to the cardiac laboratory tech and underwent transesophageal echocardiography to rule out the presence of thrombus within the appendage of the left atrium and the left atrium itself. Once the procedure was carried out, the patient was felt to be clear for cardioversion. Dr. Salmeron and Dr. Mcmanus have already discussed cardioversion with the patient. The patient had the pads placed in the anterior posterior location. She was given intravenous propofol under the services of Dr. Fuller. Once the patient was adequate sedated, she received a single synchronized countershock to the chest cage consisting of 100 moeller per second using the biphasic system. Sinus rhythm was restored. She woke up from the effects of anesthesia without deficit. SUMMARY: This was a successful cardioversion from atrial fibrillation into sinus rhythm. RECOMMENDATIONS: Lifelong anticoagulation and beta blockers plus calcium blockers to control rate and rhythm. cc: MD Inocencio Veras MD
--- NOTE | 2019-09-29 13:24 | EKG Report ---
Test Performed on : 09/29/2019 12:55:42 PM Test Reason : post NICOLE/CVN Blood Pressure : / mmHG Vent. Rate : 089 BPM Atrial Rate : 089 BPM P-R Int : 152 ms QRS Dur : 112 ms QT Int : 394 ms P-R-T Axes : 057 073 005 degrees QTc Int : 479 ms Sinus rhythm. with premature atrial complexes. Low voltage QRS Right bundle branch block Abnormal ECG When compared with ECG of 29-SEP-2019 08:53, (Unconfirmed) Sinus rhythm. has replaced Atrial fibrillation. Nonspecific T wave abnormality has replaced inverted T waves in Anterior leads Confirmed by Madi LEVY, Rajinder Ramirez ([id number]) on 09/30/2019 7:41:16 AM
[2019-09-29] MEDS ORDERED: KLOR-CON PO ONE (15:11)
--- NOTE | 2019-09-29 16:51 | PROGRESS NOTE ---
DATE: 09/29/2019 SUBJECTIVE: The patient has no major complaints. She feels better. OBJECTIVE: Vital signs: Blood pressure is 131/83, heart rate of 91, respiratory rate of 25, temperature 98.4 degrees, 97% on room air. Cardiovascular: Regular rate and rhythm. Pulmonary: Bilateral breath sounds clear to auscultation. Gastrointestinal: Abdomen soft, nontender, nondistended. Bowel sounds are positive. LABORATORY DATA: White count 9, hemoglobin and hematocrit 11 and 36. Platelets 191,000. Potassium 3.4. PROBLEM LIST: Atrial fibrillation with rapid ventricular response. She underwent DC cardioversion today. She is in normal sinus rhythm. She looks well. She is on Eliquis. She is on Cardizem but I am going to switch her to p.o. Cardizem instead of just leaving her on this IV Cardizem indefinitely and will see how she does, but I anticipate possible discharge tomorrow pending cardiac clearance and assuming she stays in normal sinus. We will continue to follow. cc: Inocencio Olvera MD
--- NOTE | 2019-09-29 16:53 | PROGRESS NOTE ---
DATE: 09/29/2019 ADDENDUM REPORT She has an Escherichia coli urinary tract infection. She also has Escherichia coli growing out of her skin from chronic venous stasis ulcers. She has been on Zosyn. It is pansensitive. We will change her to Keflex and discharge her on that. Anticipate discharge tomorrow. cc: Inocencio Olvera MD
[2019-09-29] MEDS: CARDIZEM PO SCH ×2 (17:16→21:53)
[2019-09-29] MEDS: LIPITOR PO SCH (21:53)
[2019-09-29] MEDS: ELIQUIS PO SCH (21:53)
[2019-09-29] MEDS: KEFLEX PO SCH (21:53)
[2019-09-30] MEDS: CARDIZEM PO SCH ×2 (05:21→09:21)
[2019-09-30] MEDS: LOPRESSOR PO SCH (05:22)
[2019-09-30] MEDS: HUMALOG SUBQ SCH ×2 (06:39→13:00)
[2019-09-30 06:52] LABS: BASO# 0.01 X1000 (0.0-0.2); BASO% 0.1 % (0.0-0.8); EOS# 0.04 X1000 (0.0-0.7); EOS% 0.4 % (0.0-10.0); HEMOGLOBIN 12.1 g/dL (12.0-16.0); IMM GRAN% 0.9 % (0.0-0.5); LYMPH# 1.86 X1000 (1.2-3.4); LYMPH% 17.4 % (20.5-51.1); MCH 30.1 PG (27-31); MCHC 32.7 g/dL (33-37); MONO# 0.82 X1000 (0.11-0.59); MONO% 7.6 % (1.7-9.3); MPV 9.9 FL (7.4-10.4); NEUT# 7.89 X1000 (1.4-6.5); NEUT% 73.6 % (42.2-75.2); PLT 238 X1000 (130-400); RBC 4.02 XMIL (4.2-5.4); WBC 10.72 X1000 (4.8-10.8)
[2019-09-30 07:39] LABS: AGAP 11; BUN 21 mg/dL (8-22); CALCIUM 8.9 mg/dL (8.8-10.2); CHLORIDE 102 mmol/L (98-107); COSMO 279; CREATININE 0.8 mg/dL (0.5-0.9); ESTIMATED GFR > 60; GLUCOSE 107 mg/dL (70-104); MAGNESIUM 1.9 mg/dL (1.5-2.7); POTASSIUM 3.8 mmol/L (3.5-5.1); SODIUM 138 mmol/L (136-145); TCO2 25 mmol/L (25-35)
--- NOTE | 2019-09-30 07:39 | EKG Report ---
Test Performed on : 09/30/2019 07:05:02 AM Test Reason : afib, s/p DCCV Blood Pressure : / mmHG Vent. Rate : 089 BPM Atrial Rate : 089 BPM P-R Int : 146 ms QRS Dur : 108 ms QT Int : 394 ms P-R-T Axes : 056 080 028 degrees QTc Int : 479 ms Sinus rhythm. with occasional premature ventricular complexes. Low voltage QRS Right bundle branch block Abnormal ECG When compared with ECG of 29-SEP-2019 12:55, (Unconfirmed) premature ventricular complexes. are now present premature atrial complexes. are no longer present Confirmed by Rajinder Barraza MD ([id number]) on 10/01/2019 1:00:12 PM
[2019-09-30] MEDS: VITAMIN B-12 PO SCH (08:49)
[2019-09-30] MEDS: KEFLEX PO SCH (08:49)
[2019-09-30] MEDS: ASPIRIN PO SCH (08:50)
[2019-09-30] MEDS: NEURONTIN PO SCH ×2 (08:50→14:18)
[2019-09-30] MEDS: ELIQUIS PO SCH (08:50)
[2019-09-30] MEDS: PROTONIX PO SCH (08:50)
[2019-09-30] MEDS: PREDNISONE PO SCH ×2 (08:50→14:18)
[2019-09-30] MEDS: VITAMIN D PO SCH (08:50)
[2019-09-30] MEDS: HYZAAR 100/12.5 MG TAB PO SCH (08:51)
[2019-09-30] MEDS: PATIENT'S OWN MED PO SCH (08:51)
[2019-09-30] MEDS: NORCO-7.5 PO PRN (10:57)
[2019-09-30] MEDS ORDERED: NON-FORMULARY BULK MED TOP SCH (11:00)
[2019-09-30] MEDS ORDERED: MISC. PHARMACY COMMUNICATION SCH (11:00)
[2019-09-30 11:52] VITALS: BP 146/83
[2019-09-30] MEDS ORDERED: LOPRESSOR PO SCH (21:00)
--- NOTE | 2019-10-01 05:15 | DISCHARGE SUMMARY ---
ADMISSION DATE: 09/25/2019 DISCHARGE DATE: 09/30/2019 DISCHARGE DIAGNOSES: 1. Atrial fibrillation with rapid ventricular response. 2. Escherichia coli urinary tract infection. 3. Superficial ecchymoses bleeding related to anticoagulation. PROCEDURES: NICOLE with direct cardioversion. CONSULTATIONS: Dr. Mac Mcmanus. HISTORY: Briefly, this 69-year-old female coming in for she fell. She was short of breath. She has been having significant cough. She was found to be in atrial fibrillation with rapid ventricular response. We will continue treatment. Her echocardiogram showed an EF of 65%. There was a prominent echogenic structure which was felt to be possibly a eustachian valve remnant. Recommended NICOLE at that time. She was placed on Cardizem intravenously and beta blockers, and slowly improved. She underwent cardioversion per Dr. Armijo on the . There was no evidence of atrial appendage or thrombus. EF is 55%. She has a calcified plaque, but she underwent cardioversion without difficulty after 100 moeller per second. She was recommended anticoagulation, beta blockers, and calcium channel regulo. She had a lot of significant bleeding and oozing from her arms to the point of where she just couldn't so we held at least her 1 dose of anticoagulation. I am going to recommend she hold her dose of anticoagulant and resume tomorrow. Discharge condition is stable. She has been normal sinus in the 80s without any difficulty, and the patient stabilized. DISCHARGE MEDICATIONS: 1. Lipitor 20. 2. Aspirin 81. 3. Vitamin B12 1000. 4. BYdureon 2 mg weekly. 5. Vitamin D3 2000 units daily. 6. Dapagliflozin 5 daily. 7. Gabapentin 300 t.i.d. 8. Losartan hydrochlorothiazide 100/12.5 daily. 9. Pantoprazole 40 daily. 10. Cardizem CD 120 daily. 11. Eliquis 5 b.i.d. 12. Keflex 500 q.12 for 7 days. 13. Lopressor 50 b.i.d. 14. She is on prednisone 10 t.i.d., which apparently is for her legs. cc: Inocencio Olvera MD [facility]
[2019-10-01] MEDS ORDERED: CARDIZEM CD PO SCH (09:00)
== END 2019-09-30 15:43 | disposition home or self-care (01) | DRG 309 ==
LOC: P.ED 15:57 → 2N 20:10 → SUATTDRO 20:10
PROVIDERS: ADMIT Internal Medicine; ATTEND Internal Medicine

== ENCOUNTER 2019-10-09 11:11 | Inpatient (IN) ==
[2019-10-09] MEDS ORDERED: ASPIRIN PO ONE (11:22)
[2019-10-09] MEDS ORDERED: ASPIRIN PR ONE (11:22)
[2019-10-09 12:19] LABS: INR 1.36; PROTIME 17.5 Seconds (11.0-16.0)
[2019-10-09 12:20] LABS: PTT 27.3 Seconds (22.3-41.8)
[2019-10-09 12:24] LABS: BASO# 0.02 X1000 (0.0-0.2); BASO% 0.2 % (0.0-0.8); EOS# 0.03 X1000 (0.0-0.7); EOS% 0.2 % (0.0-10.0); HEMATOCRIT 37.5 % (37.0-47.0); HEMOGLOBIN 12.4 g/dL (12.0-16.0); IMM GRAN# 0.19 X1000 (0.0-0.04); IMM GRAN% 1.6 % (0.0-0.5); LYMPH# 1.36 X1000 (1.2-3.4); LYMPH% 11.3 % (20.5-51.1); MCH 30.4 PG (27-31); MCHC 33.1 g/dL (33-37); MCV 91.9 FL (81-99); MONO# 0.97 X1000 (0.11-0.59); MPV 9.5 FL (7.4-10.4); NEUT% 78.7 % (42.2-75.2); PLT 299 X1000 (130-400); RBC 4.08 XMIL (4.2-5.4); RDW 13.1 % (11.5-14.5); WBC 12.07 X1000 (4.8-10.8)
[2019-10-09 12:26] LABS: AGAP 17; ALBUMIN 3.6 g/dL (3.5-5.0); ALKALINE PHOSPHATASE 182 U/L (32-104); BUN 27 mg/dL (8-22); CHLORIDE 104 mmol/L (98-107); COSMO 297; CREATININE 0.6 mg/dL (0.5-0.9); ESTIMATED GFR > 60; GLUCOSE 258 mg/dL (70-104); GOT 24 U/L (10-30); GPT 51 U/L (10-36); POTASSIUM 3.7 mmol/L (3.5-5.1); SODIUM 142 mmol/L (136-145); TCO2 21 mmol/L (25-35); TOTAL PROTEIN 6.3 g/dL (6.3-8.3)
[2019-10-09 12:27] LABS: PHOSPHORUS 1.9 mg/dL (2.7-4.5)
[2019-10-09] MEDS ORDERED: NS 1,800 ML IV ONE (12:38)
--- NOTE | 2019-10-09 12:38 | Diag Imaging Result Doc PS360 ---
EXAM: CHEST-2 VIEWS 10/09/2019 HISTORY: cp TECHNIQUE: PA and lateral chest COMMENT: There is no evidence of acute cardiac or pulmonary disease. There is some silhouetting of the left heart border near the apex which is probably due to a fat pad. Overall considering differences in technique compared to 09/25/2019 there has been no significant change. IMPRESSION: No acute disease. Electronically signed by Wili Dugan 10/09/2019 12:36 PM
[2019-10-09 12:40] LABS: FREE T4 1.65 ng/dL (0.93-1.70); TSH 0.12 uIUmL (0.27-4.20)
--- NOTE | 2019-10-09 13:21 | EKG Report ---
Test Performed on : 10/09/2019 11:33:51 AM Test Reason : palpitations Blood Pressure : / mmHG Vent. Rate : 130 BPM Atrial Rate : 119 BPM P-R Int : 000 ms QRS Dur : 108 ms QT Int : 324 ms P-R-T Axes : 000 068 -43 degrees QTc Int : 476 ms Atrial fibrillation. with rapid ventricular response. Low voltage QRS Right bundle branch block T wave abnormality, consider inferior ischemia Abnormal ECG When compared with ECG of 30-SEP-2019 07:05, Atrial fibrillation. has replaced Sinus rhythm. ST now depressed in Anterior leads T wave inversion now evident in Inferior leads Unconfirmed Result
[2019-10-09] MEDS ORDERED: NS 1,000 ML ONE (13:43)
[2019-10-09] MEDS ORDERED: VANCOMYCIN 1 GM/NS 1 GM/250 ML IVPB IV ONE (14:09)
[2019-10-09 14:17] LABS: URINE SOURCE CLEAN CATCH
[2019-10-09 14:29] LABS: UR AMPHETAMINES QUAL NONE DETECTED (NONE DETECT); UR BARBITUATES QUAL NONE DETECTED (NONE DETECT); UR BENZODIAZEPIN QUAL NONE DETECTED (NONE DETECT); UR CANNABINOIDS QUAL NONE DETECTED (NONE DETECT); UR COCAINE QUAL NONE DETECTED (NONE DETECT); UR METHADONE QUAL NONE DETECTED (NONE DETECT); UR METHAMPHETAMINE QUAL NONE DETECTED (NONE DETECT); UR OPIATES QUAL NONE DETECTED (NONE DETECT); UR OXYCODONE QUAL NONE DETECTED (NONE DETECT); UR PCP QUAL NONE DETECTED (NONE DETECT); UR PROPOXYPHENE QUAL NONE DETECTED (NONE DETECT); UR TCA QUAL NONE DETECTED (NONE DETECT)
[2019-10-09 14:48] LABS: COLOR YELLOW
[2019-10-09 14:49] LABS: BILIRUBIN URINE NEGATIVE (NEGATIVE); BLOOD URINE NEGATIVE (NEGATIVE); CLARITY HAZY (CLEAR); GLUCOSE URINE 500 mg/dL (NEGATIVE); KETONE URINE NEGATIVE (NEGATIVE); LEUKOCYTES URINE TRACE (NEGATIVE); NITRITE URINE NEGATIVE (NEGATIVE); PH URINE 6.5; PROTEIN URINE NEGATIVE (NEGATIVE); UROBILINOGEN URINE 0.2 EU/dL (0.2-1.0)
[2019-10-09 14:50] LABS: URINE BACTERIA 1+ /HFP; URINE CAST NONE SEEN /LPF; URINE EPITHELIAL CELLS <10 /HPF (<10); URINE YEAST NONE SEEN /HPF
[2019-10-09 14:51] LABS: URINE CRYSTAL NONE SEEN /HPF
--- NOTE | 2019-10-09 15:05 | PROVIDER DOCUMENTATION ---
This chart was entered by Liz Lima Scribe, acting as scribe for Taty Sheridan MD. HPI-Cardiac General - General Chief Complaint: Palpitations Stated Complaint: HIGH HEART RATE Time Seen by Provider: 10/09/19 11:25 Source: patient Allergies/Adverse Reactions: Patient Allergies Allergy/AdvReac Type Severity Reaction Status Date / Time shellfish derived AdvReac Severe ANAPHYLAXIS Verified 09/25/19 20:28 Iodine and Iodide Containing AdvReac ANAPHYLAXIS Verified 09/25/19 16:07 Produc Home Medications: Home Medication List Medication Instructions Recorded Confirmed Last Taken Type ATORVAstatin [Lipitor] 20 mg PO QHS 09/25/19 09/25/19 09/24/19 21:00 History Aspirin 81 mg PO DAILY 09/25/19 09/25/19 09/25/19 09:00 History Cholecalciferol (Vitamin D3) 2,000 unit PO DAILY 09/25/19 09/25/19 09/25/19 09:00 History [D3-2000] Cyanocobalamin (Vitamin B-12) 1,000 mcg PO DAILY 09/25/19 09/25/19 09/25/19 09:00 History [B-12] Dapagliflozin Propanediol [Farxiga] 5 mg PO DAILY 09/25/19 09/25/19 09/25/19 09:00 History Exenatide Microspheres [Bydureon 2 mg SQ DIRECTED 09/25/19 09/27/19 09/23/19 09:00 History Pen] Gabapentin 300 mg PO TID 09/25/19 09/25/19 Unknown History Losartan/Hydrochlorothiazide 1 tab PO DAILY 09/25/19 09/25/19 09/25/19 09:00 History [Losartan-Hctz 100-12.5 mg Tab] Pantoprazole Sodium 40 mg PO DAILY 09/25/19 09/25/19 09/25/19 09:00 History Apixaban [Eliquis] 5 mg PO BID #60 tab 09/30/19 Unknown Rx CephALEXIN [Keflex] 500 mg PO Q12H #14 cap 09/30/19 Unknown Rx Diltiazem C.d. [Cardizem Cd] 120 mg PO DAILY #30 cap 09/30/19 Unknown Rx Metoprolol [Lopressor] 50 mg PO BID #60 tab 09/30/19 Unknown Rx Prednisone 10 mg PO TID tab 09/30/19 Unknown Rx - History of Present Illness-Cardiac Nature of Presenting Problem: Patient is a 69 year old female who presents with palpitations. States she was sent from the [facility] for irregular heart rate. History of A fib. Denies chest pain and shortness of breath. Quality of Pain: reports: none Severity in ED: mild Onset/Duration: just prior to arrival Timing: still present Context/Activities at Onset: reports: light activity Palpitation Quality: irregular History of arrythmia: reports: A-Fib Associated Symptoms: reports: denies symptoms Similar Symptoms Previously?: No Recently Seen Here or By Another Healthcare Provider: No Review of Systems - Adult - REVIEW OF SYSTEMS - ADULT Constitutional: reports: no symptoms reported Eyes: reports: no symptoms reported Ears, Nose, Mouth & Throat: reports: no symptoms reported Cardiovascular: reports: see HPI, palpitations. denies: chest pain Respiratory: reports: no symptoms reported. denies: shortness of breath Gastrointestinal: reports: no symptoms reported Genitourinary: reports: no symptoms reported Musculoskeletal: reports: no symptoms reported Integumentary: reports: no symptoms reported Neurological: reports: no symptoms reported Psychiatric: reports: no symptoms reported Endocrine: reports: no symptoms reported Hematologic/Lymphatic: reports: no symptoms reported Allergic/Immunologic: reports: no symptoms reported All Other Systems: Reviewed and Negative Past History - Adult - PAST MEDICAL HISTORY-ADULT Review of Records: reports: Old Records Reviewed, Nursing Assessment Review, Medications Reviewed, Social history reviewed & non-contributory. Major Childhood Illnesses: reports: denies history Cardiovascular: reports: A-Fib, HTN, hyperlipidemia Respiratory: reports: denies history Gastrointestinal: reports: denies history Obstetrical/Gynecological: reports: denies history Genitourinary: reports: denies history Musculoskeletal: reports: denies history Neurological: reports: denies history Psychiatric: reports: denies history Endocrine/Immune: reports: Diabetes Other Conditions: reports: denies history - PRIOR SURGERIES/PROCEDURES Surgical/Procedure History: reports: reviewed, not pertinent - IMMUNIZATION STATUS Childhood Immunizations: See Nurse Assessment Flu Vaccine: See Nurse Assessment - FAMILY HISTORY Family History: reviewed, not pertinent - SOCIAL HISTORY Smoking: denies Substance Use: denies Living Situation: family Physical Exam-General - PHYSICAL EXAM-ADULT Initial Vital Signs Reviewed: Yes - CONSTITUTIONAL General Appearance: alert, no apparent distress. negative: lethargic - HEAD, EARS, NOSE, MOUTH & THROAT HENMT: normocephalic/atraumatic, moist mucous membranes. negative: angioedema - RESPIRATORY Respiratory: chest non-tender, lungs clear, normal breath sounds. negative: wheezing - CARDIOVASCULAR Cardiovascular: tachycardia, irregularly irregular. negative: systolic murmur - GASTROINTESTINAL (ABDOMEN) Abdominal Exam: normal bowel sounds, non tender, soft. negative: guarding - MUSCULOSKELETAL Extremity: non-tender, other (bandage to RLE). negative: deformity - SKIN Integumentary: normal color, normal turgor, warm/dry. negative: diaphoresis - NEUROLOGIC Neurologic: grossly normal. negative: aphasia, facial droop - PSYCHIATRIC Psych/Mental Status: normal mood/affect, normal thought content, normal thought process, oriented x 3. negative: anxious, tearful Progress - PLAN OF CARE/RESULTS Progress/Plan/Lab Results: Vital Signs - 8 hr 10/09/19 11:17 10/09/19 13:12 10/09/19 14:40 Temperature 97.5 F L Pulse Rate 119 H 120 H 110 H Respiratory Rate 18 23 19 Blood Pressure 136/69 128/96 141/90 O2 Sat by Pulse Oximetry 99 100 100 Laboratory Results - last 24 hr 10/09/19 10/09/19 10/09/19 11:46 11:46 11:46 WBC RBC Hgb Hct MCV MCH MCHC RDW Std Deviation Plt Count MPV Immature Gran % (Auto) Neut % (Auto) Lymph % (Auto) [place] % (Auto) Eos % (Auto) Baso % (Auto) Immature Gran # (Auto) Neut # (Auto) Lymph # (Auto) [place] # (Auto) Eos # (Auto) Baso # (Auto) PT INR PTT (Actin FS) Sodium Potassium Chloride Carbon Dioxide Anion Gap BUN Creatinine Estimated GFR/1.73 m2 BUN/Creatinine Ratio Glucose Calculated Osmolality Calcium Phosphorus 1.9 L Magnesium Total Bilirubin AST ALT Alkaline Phosphatase Creatine Kinase 20 L 20 L Troponin T High Sens Exs-X-Shqjjqgrwen Pept 3386 H Total Protein Albumin Globulin Albumin/Globulin Ratio Plasma Lactate TSH Free T4 Urine Source Urine Color Urine Clarity Urine Turbidity Urine pH Ur Specific [place] Urine Protein Ur Glucose (Stick) Urine Ketones Ur Ketones (Stick) Urine Blood Urine Nitrite Urine Bilirubin Urine Urobilinogen Urobilinogen Dipstick Urine Leukocytes Urine WBC (Auto) Urine RBC (Auto) U Epithel Cells (Auto) Urine Bacteria (Auto) Urine Microscopic RBC Urine WBC Urine Microscopic WBC Ur Epithelial Cells Urine Crystals Urine Bacteria Urine Casts Urine Yeast Urine Glucose Urine Opiates Screen Ur Oxycodone Screen Urine Methadone Screen U Propoxyphene Qual Ur Barbituates Screen Ur Tricyclics Screen Ur Phencyclidine Scrn Ur Amphetamines Screen U Methamphetamines Scrn U Benzodiazepines Scrn Urine Cocaine Screen U Cannabinoids Screen 10/09/19 10/09/19 10/09/19 11:46 11:46 11:46 WBC RBC Hgb Hct MCV MCH MCHC RDW Std Deviation Plt Count MPV Immature Gran % (Auto) Neut % (Auto) Lymph % (Auto) [place] % (Auto) Eos % (Auto) Baso % (Auto) Immature Gran # (Auto) Neut # (Auto) Lymph # (Auto) [place] # (Auto) Eos # (Auto) Baso # (Auto) PT 17.5 H INR 1.36 PTT (Actin FS) 27.3 Sodium 142 Potassium 3.7 Chloride 104 Carbon Dioxide 21 L Anion Gap 17 BUN 27 H Creatinine 0.6 Estimated GFR/1.73 m2 > 60 BUN/Creatinine Ratio 45 Glucose 258 H Calculated Osmolality 297 Calcium 9.0 Phosphorus Magnesium 2.0 Total Bilirubin 0.50 AST 24 ALT 51 H Alkaline Phosphatase 182 H Creatine Kinase Troponin T High Sens Fab-P-Zgfgntjtvor Pept Total Protein 6.3 Albumin 3.6 Globulin 3.0 Albumin/Globulin Ratio 1.0 Plasma Lactate TSH 0.12 L Free T4 1.65 Urine Source Urine Color Urine Clarity Urine Turbidity Urine pH Ur Specific [place] Urine Protein Ur Glucose (Stick) Urine Ketones Ur Ketones (Stick) Urine Blood Urine Nitrite Urine Bilirubin Urine Urobilinogen Urobilinogen Dipstick Urine Leukocytes Urine WBC (Auto) Urine RBC (Auto) U Epithel Cells (Auto) Urine Bacteria (Auto) Urine Microscopic RBC Urine WBC Urine Microscopic WBC Ur Epithelial Cells Urine Crystals Urine Bacteria Urine Casts Urine Yeast Urine Glucose Urine Opiates Screen Ur Oxycodone Screen Urine Methadone Screen U Propoxyphene Qual Ur Barbituates Screen Ur Tricyclics Screen Ur Phencyclidine Scrn Ur Amphetamines Screen U Methamphetamines Scrn U Benzodiazepines Scrn Urine Cocaine Screen U Cannabinoids Screen 10/09/19 10/09/19 10/09/19 11:46 11:46 12:08 WBC 12.07 H RBC 4.08 L Hgb 12.4 Hct 37.5 MCV 91.9 MCH 30.4 MCHC 33.1 RDW Std Deviation 13.1 Plt Count 299 MPV 9.5 Immature Gran % (Auto) 1.6 H Neut % (Auto) 78.7 H Lymph % (Auto) 11.3 L [place] % (Auto) 8.0 Eos % (Auto) 0.2 Baso % (Auto) 0.2 Immature Gran # (Auto) 0.19 H Neut # (Auto) 9.50 H Lymph # (Auto) 1.36 [place] # (Auto) 0.97 H Eos # (Auto) 0.03 Baso # (Auto) 0.02 PT INR PTT (Actin FS) Sodium Potassium Chloride Carbon Dioxide Anion Gap BUN Creatinine Estimated GFR/1.73 m2 BUN/Creatinine Ratio Glucose Calculated Osmolality Calcium Phosphorus Magnesium Total Bilirubin AST ALT Alkaline Phosphatase Creatine Kinase Troponin T High Sens 41 H Rhl-F-Vtwgvqsdwvw Pept Total Protein Albumin Globulin Albumin/Globulin Ratio Plasma Lactate 3.2 H TSH Free T4 Urine Source Urine Color Urine Clarity Urine Turbidity Urine pH Ur Specific [place] Urine Protein Ur Glucose (Stick) Urine Ketones Ur Ketones (Stick) Urine Blood Urine Nitrite Urine Bilirubin Urine Urobilinogen Urobilinogen Dipstick Urine Leukocytes Urine WBC (Auto) Urine RBC (Auto) U Epithel Cells (Auto) Urine Bacteria (Auto) Urine Microscopic RBC Urine WBC Urine Microscopic WBC Ur Epithelial Cells Urine Crystals Urine Bacteria Urine Casts Urine Yeast Urine Glucose Urine Opiates Screen Ur Oxycodone Screen Urine Methadone Screen U Propoxyphene Qual Ur Barbituates Screen Ur Tricyclics Screen Ur Phencyclidine Scrn Ur Amphetamines Screen U Methamphetamines Scrn U Benzodiazepines Scrn Urine Cocaine Screen U Cannabinoids Screen 10/09/19 10/09/19 10/09/19 14:00 14:00 14:00 WBC RBC Hgb Hct MCV MCH MCHC RDW Std Deviation Plt Count MPV Immature Gran % (Auto) Neut % (Auto) Lymph % (Auto) [place] % (Auto) Eos % (Auto) Baso % (Auto) Immature Gran # (Auto) Neut # (Auto) Lymph # (Auto) [place] # (Auto) Eos # (Auto) Baso # (Auto) PT INR PTT (Actin FS) Sodium Potassium Chloride Carbon Dioxide Anion Gap BUN Creatinine Estimated GFR/1.73 m2 BUN/Creatinine Ratio Glucose Calculated Osmolality Calcium Phosphorus Magnesium Total Bilirubin AST ALT Alkaline Phosphatase Creatine Kinase Troponin T High Sens Jjg-Q-Ztvxooiwhnl Pept Total Protein Albumin Globulin Albumin/Globulin Ratio Plasma Lactate TSH Free T4 Urine Source Cancelled CLEAN CATCH Urine Color Cancelled YELLOW Urine Clarity HAZY A Urine Turbidity Cancelled Urine pH Cancelled 6.5 Ur Specific [place] Cancelled 1.010 Urine Protein Cancelled NEGATIVE Ur Glucose (Stick) Cancelled Urine Ketones NEGATIVE Ur Ketones (Stick) Cancelled Urine Blood Cancelled NEGATIVE Urine Nitrite Cancelled NEGATIVE Urine Bilirubin Cancelled NEGATIVE Urine Urobilinogen 0.2 Urobilinogen Dipstick Cancelled Urine Leukocytes Cancelled Urine WBC (Auto) Cancelled Urine RBC (Auto) Cancelled U Epithel Cells (Auto) Cancelled Urine Bacteria (Auto) Cancelled Urine Microscopic RBC Not Reportable Urine WBC TRACE A Urine Microscopic WBC 10-20 A Ur Epithelial Cells <10 Urine Crystals NONE SEEN Urine Bacteria 1+ Urine Casts NONE SEEN Urine Yeast NONE SEEN Urine Glucose 500 A Urine Opiates Screen NONE DETECTED Ur Oxycodone Screen NONE DETECTED Urine Methadone Screen NONE DETECTED U Propoxyphene Qual NONE DETECTED Ur Barbituates Screen NONE DETECTED Ur Tricyclics Screen NONE DETECTED Ur Phencyclidine Scrn NONE DETECTED Ur Amphetamines Screen NONE DETECTED U Methamphetamines Scrn NONE DETECTED U Benzodiazepines Scrn NONE DETECTED Urine Cocaine Screen NONE DETECTED U Cannabinoids Screen NONE DETECTED 10/09/19 14:30 WBC RBC Hgb Hct MCV MCH MCHC RDW Std Deviation Plt Count MPV Immature Gran % (Auto) Neut % (Auto) Lymph % (Auto) [place] % (Auto) Eos % (Auto) Baso % (Auto) Immature Gran # (Auto) Neut # (Auto) Lymph # (Auto) [place] # (Auto) Eos # (Auto) Baso # (Auto) PT INR PTT (Actin FS) Sodium Potassium Chloride Carbon Dioxide Anion Gap BUN Creatinine Estimated GFR/1.73 m2 BUN/Creatinine Ratio Glucose Calculated Osmolality Calcium Phosphorus Magnesium Total Bilirubin AST ALT Alkaline Phosphatase Creatine Kinase Troponin T High Sens Diw-W-Fysooxvtvac Pept Total Protein Albumin Globulin Albumin/Globulin Ratio Plasma Lactate 2.8 H TSH Free T4 Urine Source Urine Color Urine Clarity Urine Turbidity Urine pH Ur Specific [place] Urine Protein Ur Glucose (Stick) Urine Ketones Ur Ketones (Stick) Urine Blood Urine Nitrite Urine Bilirubin Urine Urobilinogen Urobilinogen Dipstick Urine Leukocytes Urine WBC (Auto) Urine RBC (Auto) U Epithel Cells (Auto) Urine Bacteria (Auto) Urine Microscopic RBC Urine WBC Urine Microscopic WBC Ur Epithelial Cells Urine Crystals Urine Bacteria Urine Casts Urine Yeast Urine Glucose Urine Opiates Screen Ur Oxycodone Screen Urine Methadone Screen U Propoxyphene Qual Ur Barbituates Screen Ur Tricyclics Screen Ur Phencyclidine Scrn Ur Amphetamines Screen U Methamphetamines Scrn U Benzodiazepines Scrn Urine Cocaine Screen U Cannabinoids Screen Orders Category Date Time Status Cardiac Monitoring DIRECTED Care 10/09/19 11:23 Active Cardiac Monitoring NOW Care 10/09/19 12:39 Active IV Insertion NOW Care 10/09/19 12:39 Completed NEWS Score 2-4:Order NEWS Lactate Series NOW Care 10/09/19 11:20 Active Notify Provider of NEWS Score NOW Care 10/09/19 12:39 Active Nursing- Obtain EKG ONCE Care 10/09/19 11:23 Active Oxygen Therapy- ED Nursing DIRECTED Care 10/09/19 11:23 Active Saline Loc NOW Care 10/09/19 11:23 Active CHEST-2 VIEWS [RAD] Stat Exams 10/09/19 12:25 Completed BLOOD CULTURE [BLDCUL] Stat Lab 10/09/19 13:33 Ordered CBC WITH ELECTRONIC DIFF [HEME] Stat Lab 10/09/19 11:46 Completed CK PROFILE [SP CHEM] Stat Lab 10/09/19 11:46 Completed CK TOTAL [CHEM] Stat Lab 10/09/19 11:46 Completed COMPREHENSIVE METABOLIC PANEL [CHEM] Stat Lab 10/09/19 11:46 Completed FREE T4 Stat Lab 10/09/19 11:46 Completed LACTATE, PLASMA [CHEM] Lab 10/09/19 12:08 Completed LACTATE, PLASMA [CHEM] Lab 10/09/19 14:30 Received LACTATE, PLASMA [CHEM] Lab 10/09/19 17:30 Uncollected MAGNESIUM [CHEM] Stat Lab 10/09/19 11:46 Completed PHOSPHORUS [CHEM] Stat Lab 10/09/19 11:46 Completed PRO B-NATRIURETIC PEPTIDE Stat Lab 10/09/19 11:46 Completed PROTIME WITH INR [COAG] Stat Lab 10/09/19 11:46 Completed PTT [COAG] Stat Lab 10/09/19 11:46 Completed TROPONIN T HIGH SENSITIVITY Stat Lab 10/09/19 11:46 Completed TSH Stat Lab 10/09/19 11:46 Completed URINE CULTURE [RM] Routine Lab 10/09/19 14:51 Ordered URINE DRUG SCREEN PL Stat Lab 10/09/19 14:00 Completed 0.9% Sodium Chloride Inj [Ns] 1,000 ml Med 10/09/19 13:43 Discontinued .ROUTE As directed 0.9% Sodium Chloride Inj [Ns] 1,800 ml Med 10/09/19 12:38 Discontinued IV 999 mls/hr Aspirin Med 10/09/19 11:22 Discontinued 300 mg NH NOW ONE Aspirin Med 10/09/19 11:22 Discontinued 325 mg PO NOW ONE Vancomycin 1 gm/Ns Med 10/09/19 14:09 Active 1 gm in 250 ml IV NOW CP/SOB/Palp >45 yrs of Age Stat Oth 10/09/19 11:22 Ordered O2 Per Protocol Stat Oth 10/09/19 12:39 Active EKG [EKG] Stat Ther 10/09/19 11:23 Draft Result Diagrams: 10/09/19 11:46 10/09/19 11:46 - XRAY 1 XRAY Study: Chest Impression: See EMR Report ( EXAM: CHEST-2 VIEWS 10/09/2019 HISTORY: cp TECHNIQUE: PA and lateral chest COMMENT: There is no evidence of acute cardiac or pulmonary disease. There is some silhouetting of the left heart border near the apex which is probably due to a fat pad. Overall considering differences in technique compared to 09/25/2019 there has been no significant change. IMPRESSION: No acute disease. Electronically signed by Wili Dugan 10/09 12:36 PM 10/09/19 1236 Interpreting Physician: Wili Dugan MD Dictated Date/Time: 10/09/19 1235 cc: Benigno Felix; Mac Mcmanus MD) Departure - Departure Date of Disposition Decision: 10/09/19 Time of Disposition Decision: 15:03 DIAGNOSIS: Palpitation, Lactate blood increased, Atrial fibrillation with RVR Disposition: ADMITTED INPATIENT 09 Certified Medical Emergency: Emergent Condition: Good Referrals and Follow-Ups: Mac Mcmanus MD [Primary Care Provider] - - Critical Care Note This patient required my direct & personal management of CC.: No Attestation - Physician/ ZARI Attestation Patient care was provided by Advanced Practice Provider:: No The physician spent face to face time with patient:: Yes Advanced Practice Provider documentation review:: Supervising physician onsite and consulted in the evaluation and care of this patient. The physician did have a face to face encounter with the patient. This chart was documented by the indicated scribe, (Liz Lima Scribe) and accurately reflects the services I performed and decisions made by , Taty Sheridan MD, as attested by the provider's signature.
[2019-10-09] MEDS: ZOSYN 3.375 GM in NS 50 ML IV SCH ×2 (16:30→22:01)
[2019-10-09] MEDS ORDERED: VANCOMYCIN IV PER PHARMACY MISC SCH (16:30)
[2019-10-09] MEDS ORDERED: SODIUM PHOSPHATE 30 MMOL in NS 250 ML IV ONE (16:33)
--- NOTE | 2019-10-09 17:48 | HISTORY AND PHYSICAL ---
PRIMARY CARE PHYSICIAN: SYLVIE Joaquin. CHIEF COMPLAINT: Palpitations. HISTORY OF PRESENT ILLNESS: Ms. Larsen is a 69-year-old female with a past medical history of diabetes, atrial fibrillation, diabetic leg ulcers, congestive heart failure, hypertension, hyperlipidemia, and arthritis. The patient does present to the ER today with complaints of palpitations. The patient was at the [facility] today receiving treatments for her diabetic leg ulcers. The patient did start having palpitations. The patient was sent over to the ER at that time. The patient is known to have a history of atrial fibrillation with RVR. The patient was admitted to the hospital on 09/25/2019 for atrial fibrillation/RVR. She did have a cardiac catheterization and cardioversion during that stay. The patient was discharged on 10/01/2019. The patient was noted to be in normal sinus rhythm at discharge. The patient was discharged home on Eliquis and Cardizem CD. The patient states she has had no further events up until today when she was having treatment at the [facility]. Upon initiation at the ER, an EKG was obtained. EKG did note the patient to be in atrial fibrillation with RVR with a rate of 130 beats per minute. The patient also does have an elevated white blood cell count 12.07, elevated proBNP at 3386, and a decreased phosphorus level of 1.9. The patient denies any cough, fever, chills, flu-like symptoms, congestion, headache, vision changes, neck pain, stiffness, excessive thirst, chest pain, palpitations, orthopnea, PND, dyspnea, hemoptysis, nausea, vomiting, diarrhea, constipation, dysuria, hematuria, muscle pain, weakness, syncope,dizziness, numbness, or any other pertinent symptoms at this time. REVIEW OF SYSTEMS: A 10-point review of systems has been obtained. All are negative except what is stated above in HPI. PAST MEDICAL HISTORY: 1. Diabetes mellitus. 2. Congestive heart failure. 3. Atrial fibrillation. 4. Hypertension. 5. Hyperlipidemia. 6. Arthritis. 7. Basal cell carcinoma. 8. Diabetic ulcers to the right and left lower extremities and the left hand. 9. Recent E. Coli UTI. PAST SURGICAL HISTORY: 1. Cholecystectomy. 2. Tubal ligation. 3. Tonsillectomy. 4. NICOEL with cardioversion. FAMILY HISTORY: Mother had kidney disease. Father had pancreatic cancer. SOCIAL HISTORY: The patient does live with her spouse. She is a mother of 3 children. She denies any smoking, alcohol or illicit drug use. She denies any use of any assistive devices. ALLERGIES: Shellfish-derived iodine and iodine-containing products and bee stings. HOME MEDICATIONS: 1. Lipitor 20 mg p.o. daily. 2. Aspirin 81 mg p.o. daily. 3. Vitamin B12, 1000 mg p.o. daily. 4. Bydureon 2 mg weekly. 5. Vitamin D3, 2000 units daily. 6. Dapagliflozin 5 daily. 7. Gabapentin 300 t.i.d. 8. Losartan/hydrochlorothiazide 100/12.5 daily. 9. Protonix 40 mg daily. 10. Cardizem CD 120 mg daily. 11. Eliquis 5 mg b.i.d. 12. Lopressor 50 mg p.o. b.i.d. 13. Prednisone 10 mg p.o. t.i.d. PHYSICAL EXAM: VITAL SIGNS: Temperature 97.6, pulse rate 91, respiratory rate 19, blood pressure 130/96, O2 saturation 100% on room air. GENERAL: This is a 69-year-old female. She is lying in the ER stretcher. She is well nourished and well developed, in no acute distress. HEENT: Atraumatic, normocephalic. Pupils are equal, round, and reactive to light. Mucous membranes are moist. NECK: Supple. No lymphadenopathy. Trachea is midline. No JVD. CV: Irregular rate and rhythm. It is atrial fibrillation on the monitor. The rate is about 91 beats per minute. There are no murmurs, gallops, or rubs appreciated. RESPIRATORY: Lung sounds are clear with equal chest excursion. Respirations are nonlabored. No accessory muscle usage GI. ABDOMEN: Soft, nontender, nondistended. Bowel sounds present x1. : There is no suprapubic tenderness noted. Patient is able to void without difficulty. NEUROLOGIC: Patient is awake, alert, and oriented, able to follow all commands appropriately. MUSCULOSKELETAL: There is decreased strength noted to the bilateral lower extremities, but the patient is able to move everything throughout. No abnormalities noted. EXTREMITIES: There is no clubbing, no cyanosis, no edema. DP and PT pulses are present and palpable. SKIN: Warm and dry. There are wounds noted to the left heel, the right anterior and right posterior heel, and the left hand. They are wrapped from the Wound Center. Skin is very frail. There is no diaphoresis. LABS AND DIAGNOSTICS: White blood cell count 12.07, hemoglobin is 12.4, hematocrit 37.5, platelet count 299. PT 17.5, INR is 1.36. Sodium is 142, potassium is 3.7, BUN is 27, creatinine is 0.6, glucose is 258, phosphorus is 1.9, magnesium is 2.0. Troponin is 41. ProBNP is 3386. Plasma lactate is 2.8. TSH is 0.12. Free T4 is 1.65. Urinalysis is negative. Urine drug screen is negative. Chest x-ray shows no acute disease. ASSESSMENT: 1. Atrial fibrillation RVR. 2. Hypophosphatemia. 3. Congestive heart failure. 4. Diabetes mellitus. 5. Diabetic ulcers to the lower extremities and the left hand. 6. Hypertension. PLAN: We will admit this patient to the ICU unit. We will consult Cardiology. The patient did have atrial fibrillation with RVR on presentation to the ER. This is a more controlled rate at this time. We will start this patient on Cardizem. We will continue her home dose of Eliquis and metoprolol. We will start the patient on IV antibiotics for her leg wounds. She did have an increased white blood cell count. I will trend her CK and troponins every 8 hours. I will repeat EKG in the morning. I will replace her phosphorus and recheck a phosphorus and a magnesium in the morning. I will provide her with a healthy-heart diet. I will resume home medications as appropriate. We will do before-meal and bedtime blood sugars and sliding-scale insulin. We will provide her with supplemental O2 as needed. We will consult the Wound nurse for her wound care. All other further treatment pending hospital course and laboratory data. Dictated by SYLVIE Dickinson for Rupert Sanders MD cc: MD Raven Gandhi CRNP MTDD
--- NOTE | 2019-10-09 18:11 | ED EKG INTERP ---
This chart was entered by Liz Lima Scribe, acting as scribe for Taty Sheridan MD. EKG Interpretation - EKG Time of EKG reading by physician:: 11:33 EKG Read and Signed by:: Taty Sheridan EKG Interpretation (*Must complete 3 of following elements*): Abnormal Rate: 130 Rhythm: atrial fibrillation with rapid ventricular response [place]: normal QRS: RBB, other (low voltage) Comments: T wave abnormality, consider inferior ischemia Attestation - Physician/ ZARI Attestation Patient care was provided by Advanced Practice Provider:: No The physician spent face to face time with patient:: Yes Advanced Practice Provider documentation review:: Supervising physician onsite and consulted in the evaluation and care of this patient. The physician did have a face to face encounter with the patient. This chart was documented by the indicated scribe, (Liz Lima Scribe) and accurately reflects the services I performed and decisions made by me, Taty Sheridan MD, as attested by the provider's signature.
[2019-10-09] MEDS ORDERED: CARDIZEM 100 MG/NS 100 MG/100 ML IVPB IV SCH (20:42)
[2019-10-09] MEDS: HUMALOG SUBQ SCH (21:04)
[2019-10-09] MEDS: CARDIZEM PO SCH (21:13)
[2019-10-09] MEDS: ELIQUIS PO SCH (21:13)
--- NOTE | 2019-10-09 21:49 | HISTORY AND PHYSICAL ---
ADDENDUM: Patient seen and examined by myself. Full note dictated and discussed with nurse practitioner. Patient presented to the hospital after having been in [facility]. She was noted to have atrial fibrillation with rapid rate. While in the ER, her rates bounced from 100 to 130s. Currently, she is at 115. We are going to admit her to the hospital, transfer to [facility], place her on a Cardizem drip. We will place her on antibiotics for her wound. We will ask Cardiology to evaluate further orders as needed. cc: Rupert Sanders MD
[2019-10-10] MEDS: CARDIZEM PO SCH ×4 (03:33→17:42)
[2019-10-10] MEDS: ZOSYN 3.375 GM in NS 50 ML IV SCH ×4 (05:04→23:35)
[2019-10-10 05:18] LABS: HEMATOCRIT 35.6 % (37.0-47.0); HEMOGLOBIN 11.7 g/dL (12.0-16.0); MCH 30.4 PG (27-31); MCHC 32.9 g/dL (33-37); MCV 92.5 FL (81-99); MPV 9.3 FL (7.4-10.4); RBC 3.85 XMIL (4.2-5.4); RDW 13.4 % (11.5-14.5); WBC 11.84 X1000 (4.8-10.8)
[2019-10-10 05:39] LABS: AGAP 14; BUN 15 mg/dL (8-22); CALCIUM 8.1 mg/dL (8.8-10.2); CHLORIDE 108 mmol/L (98-107); COSMO 283; CREATININE 0.5 mg/dL (0.5-0.9); ESTIMATED GFR > 60; GLUCOSE 87 mg/dL (70-104); MAGNESIUM 1.7 mg/dL (1.5-2.7); PHOSPHORUS 2.9 mg/dL (2.7-4.5); SODIUM 142 mmol/L (136-145); TCO2 20 mmol/L (25-35)
[2019-10-10] MEDS ORDERED: KLOR-CON PO ONE (06:11)
[2019-10-10] MEDS ORDERED: VANCOMYCIN IV PER PHARMACY MISC SCH (06:15)
--- NOTE | 2019-10-10 06:41 | PROGRESS NOTE ---
DATE: 10/10/2019 SUBJECTIVE: Patient reports feeling fine. Denies chest pain, palpitation, chest pressure, fever or chills. OBJECTIVE: Vital Signs: Temperature 97.6 degrees, heart rate 103, respiratory rate 19, blood pressure 145/85, and O2 saturation 100% on room. General: On examination, this is a chronically ill-looking, 69-year-old female, lying in bed, in no acute distress. Cardiovascular: Irregularly irregular heart rhythm. Tachycardic. No murmurs, gallops, or rubs noted. Respiratory: Clear bilaterally to auscultation. No work of breathing or using accessory muscles. Abdomen: Soft. Nontender to palpation. Bowel sounds present. No organomegaly. Extremities: No clubbing, no cyanosis, or edema. Peripheral pulses present in both legs. There are wounds noted in the left heel, the right anterior and right posterior heel, and the left hand, the last one covered by dressing, the wrap from the [facility]. Neurological: Patient is alert and oriented x3. Moves 4 extremities. LABORATORY DATA: White cell count 11.84, hemoglobin 11.7, hematocrit 35.6, platelets 250,000. The potassium is 3, normal renal function. Phosphorus 2.9, magnesium 1.7. Troponin 26. ASSESSMENT AND PLAN: 1. Atrial fibrillation with rapid ventricular rate. The patient has been started on Cardizem 30 mg by mouth every 6 hours. She has been at home on Cardizem CD 120 mg by mouth daily. Heart rate is up and down. Upon my examination this morning, heart rate has been ranging between 100 and 140s. I think at this point, we are going to increase the doses of Cardizem to 60 mg IV every 6 hours. She has been here recently. She was cardioverted successfully 1 week ago. She is supposed to be on lifelong anticoagulation, on beta-blockers and calcium blockers to control heart rate, heart rhythm, but unfortunately, even on those medication, her heart rate has been elevated. Cardiology is supposed to see this patient today for further recommendations. At this point, we will continue with same management. 2. Diabetic ulcers to the lower extremities and the left hand. The patient has been started on vancomycin and Zosyn. Wound Care has been consulted. 3. Hypokalemia. We will replenish potassium today. 4. History of congestive heart failure. Patient does not look to be in any heart failure. We will continue home medications. 5. Diabetes mellitus type 2. We will continue with sliding scale insulin and Accu-Chek before meals and also at bedtime. 6. Hypertension. Blood pressure is under control. We will continue with the same management. 7. Disposition. At this point, as we mentioned before, we will plan to monitor this patient in the intensive care unit. We will increase the doses of Cardizem to 60 mg IV every 6 hours. We are awaiting for further recommendations from Cardiology. cc: Thomas Singer MD
[2019-10-10] MEDS: HUMALOG SUBQ SCH ×4 (07:07→21:28)
--- NOTE | 2019-10-10 07:27 | EKG Report ---
Test Performed on : 10/10/2019 07:13:15 AM Test Reason : afib Blood Pressure : / mmHG Vent. Rate : 100 BPM Atrial Rate : 105 BPM P-R Int : 000 ms QRS Dur : 070 ms QT Int : 370 ms P-R-T Axes : 000 063 -49 degrees QTc Int : 477 ms Atrial fibrillation. Low voltage QRS Nonspecific ST and T wave abnormality Prolonged QT Abnormal ECG When compared with ECG of 09-OCT-2019 11:33, (Unconfirmed) Right bundle branch block is no longer present Confirmed by Rajinder Barraza MD ([id number]) on 10/10/2019 4:58:18 PM
[2019-10-10] MEDS: ELIQUIS PO SCH ×2 (09:00→20:16)
[2019-10-10] MEDS ORDERED: VANCOMYCIN 1 GM/NS 1 GM/250 ML IVPB IV SCH ×2 (14:00)
[2019-10-10] MEDS: MORPHINE IV PRN ×2 (14:54→20:17)
[2019-10-10] MEDS: LOPRESSOR PO SCH (20:16)
--- NOTE | 2019-10-10 21:44 | CONSULTATION ---
DATE OF CONSULTATION: 10/10/2019 IMPRESSION: 1. Recurrent atrial fibrillation with moderate tachycardia initially. Patient is status post NICOLE cardioversion approximately 10 days ago, restoring sinus rhythm after she presented at that time with atrial fibrillation of unknown duration. She continues asymptomatic from a standpoint of atrial fibrillation. 2. Diabetes mellitus. 3. Chronic lower extremity nonhealing ulcers. 4. Hypertension. 5. Hyperlipidemia. 6. Diabetic neuropathy. RECOMMENDATIONS: 1. Continue anticoagulation given significant CHADS-VASc score consistent with significant thromboembolic risk. 2. Further management of atrial fibrillation discussed with the patient. She has no symptoms attributable to the atrial fibrillation. Further treatment options of managing simply with rate control and anticoagulation versus considering initiation of antiarrhythmic therapy and repeat cardioversion. After discussing the merits and limitations of either approach, she expressed a preference for a simple approach of rate control and anticoagulation. Therefore will adjust diltiazem and metoprolol to achieve rate control, at which point patient would be reasonable for discharge to home. HISTORY: This 69-year-old white female with past history of previous atrial fibrillation, NICOLE cardioversion about 10 days ago, diabetes mellitus, diabetic neuropathy, chronic lower extremity nonhealing wounds, hypertension and hyperlipidemia returned to wound care clinic this morning. She was noted to be back in atrial fibrillation. She has no symptoms attributable to her atrial fibrillation. There has been no angina or shortness of breath, fatigue or palpitations. There has been no syncope. She was hospitalized here several weeks ago with atrial fibrillation that was discovered under similar circumstances. She was started on anticoagulation. Atrial fibrillation persisted and she had NICOLE cardioversion performed, restoring sinus rhythm. PAST MEDICAL HISTORY: 1. Diabetes mellitus. 2. Diabetic neuropathy. 3. Chronic lower extremity nonhealing wounds. 4. Hyperlipidemia. 5. Hypertension. 6. She is allergic or intolerant to shellfish, iodine. MEDICATIONS PRIOR TO ADMISSION: As listed. SOCIAL HISTORY: She does not smoke. She does not use alcohol. FAMILY HISTORY: Positive for hypertension. There is no family history of premature coronary disease. REVIEW OF SYSTEMS: Pulmonary: Negative. Gastrointestinal: Negative. Constitutional: Negative review of systems negative/noncontributory with 14 total systems reviewed. PHYSICAL EXAMINATION: General: This is a pleasant older white female in no distress on room air. Vital signs: Blood pressure 123/86, heart rate 110 and irregular with ECG monitor showing atrial fibrillation. Oxygen saturation 100% on room air. HEENT: Extraocular movements intact. Mucous membranes are moist. Neck: Supple without jugular venous distention. There are no carotid bruits. Chest: Clear to auscultation bilaterally. Cardiac Exam: Reveals an irregular rate and rhythm without appreciable murmur or gallop. Abdomen: Soft. Bowel sounds are normal. Extremities: Without edema. Neurologic: Reveals her to be alert and fully oriented. Speech is fluent. Moves all 4 extremities equally well. PERTINENT DATA: Twelve lead EKG obtained on admission demonstrates atrial fibrillation with ventricular rate response of 130 beats per minute, low voltage QRS and right bundle branch block. LABORATORY DATA: Includes a white blood cell count 11.84 hematocrit 35.6, hemoglobin 11.7, platelet count 250,000. Sodium 142, potassium 3.0, chloride 108, carbon dioxide 20, BUN 15, creatinine 0.5, glucose 143. Troponin T high sensitivity 26. CPK 16. Recent TSH 0.12. Free T4 1.65. Echocardiography earlier this month demonstrates normal left ventricular systolic function. Mild mitral regurgitation. cc: Bryson Bach MD
[2019-10-11] MEDS: ZOSYN 3.375 GM in NS 50 ML IV SCH (05:13)
[2019-10-11] MEDS: HUMALOG SUBQ SCH (07:07)
[2019-10-11 07:43] LABS: BASO# 0.01 X1000 (0.0-0.2); BASO% 0.1 % (0.0-0.8); EOS# 0.06 X1000 (0.0-0.7); EOS% 0.6 % (0.0-10.0); HEMATOCRIT 36.5 % (37.0-47.0); HEMOGLOBIN 11.7 g/dL (12.0-16.0); IMM GRAN# 0.14 X1000 (0.0-0.04); IMM GRAN% 1.3 % (0.0-0.5); LYMPH# 1.33 X1000 (1.2-3.4); LYMPH% 12.7 % (20.5-51.1); MCH 29.7 PG (27-31); MCHC 32.1 g/dL (33-37); MCV 92.6 FL (81-99); MONO# 0.76 X1000 (0.11-0.59); MONO% 7.2 % (1.7-9.3); MPV 9.7 FL (7.4-10.4); NEUT# 8.21 X1000 (1.4-6.5); NEUT% 78.1 % (42.2-75.2); PLT 278 X1000 (130-400); RBC 3.94 XMIL (4.2-5.4); RDW 13.5 % (11.5-14.5); WBC 10.51 X1000 (4.8-10.8)
[2019-10-11 07:46] LABS: AGAP 13; ALBUMIN 2.7 g/dL (3.5-5.0); BUN 11 mg/dL (8-22); CALCIUM 8.1 mg/dL (8.8-10.2); CHLORIDE 107 mmol/L (98-107); COSMO 279; CREATININE 0.7 mg/dL (0.5-0.9); ESTIMATED GFR > 60; GLUCOSE 99 mg/dL (70-104); PHOSPHORUS 2.4 mg/dL (2.7-4.5); SODIUM 140 mmol/L (136-145); TCO2 20 mmol/L (25-35)
[2019-10-11 08:02] VITALS: BP 133/93
[2019-10-11] MEDS: ELIQUIS PO SCH (08:43)
[2019-10-11] MEDS: LOPRESSOR PO SCH (08:43)
[2019-10-11] MEDS ORDERED: CARDIZEM CD PO SCH (09:00)
--- NOTE | 2019-10-11 10:35 | DISCHARGE SUMMARY ---
ADMISSION DATE: 10/09/2019 DISCHARGE DATE: 10/11/2019 DISCHARGE DIAGNOSES: 1. Chronic atrial fibrillation with rapid ventricular rate. Heart rate controlled. 2. Congestive heart failure. 3. Diabetes mellitus type 2. 4. Diabetic ulcer to the lower extremity and left hand. 5. Hypertension. CONSULTATIONS: Dr. Bach from Cardiology. PROCEDURES: Chest x-ray done on admission showed no acute disease. HOSPITAL COURSE: The patient is a 69-year-old female with chronic atrial fibrillation who actually has been seen at the beginning of the month, 1 week ago, for the same condition. She had a cardioversion and she was discharged actually a week ago. The patient was found to have atrial fibrillation again with rapid ventricular response so she was admitted to the hospital to the intensive care unit. She was placed initially on Cardizem p.o. and Cardizem drip that was supposed to be started if heart rate is not well controlled with oral medication. Fortunately, we were able to control heart rate with oral medication. Cardizem drip has never been started. Cardiology has been consulted. According to patient, she wanted to have conservative management only so she has been observed 24 hours with Cardizem CD 180 mg p.o. daily plus metoprolol 50 mg p.o. b.i.d. Heart rate has been well controlled, so she is going to be discharged in stable condition. She is going to be seen by Cardiology in 4 weeks. DISCHARGE PHYSICAL EXAMINATION: Vital signs: Temperature 98.2 degrees, heart rate 96, respiratory rate 20, blood pressure 133/93, O2 saturation 97% on room air. General: This is a 69- year-old female lying in bed, in no acute distress. Cardiovascular: Irregularly irregular heart rhythm. No murmurs, gallops, or rubs. Respiratory: Clear bilaterally to auscultation. No work of breathing or using accessory muscles. Abdomen: Soft, nontender to palpation. Bowel sounds present. No organomegaly. Extremities: No clubbing, cyanosis, or edema. Peripheral pulses present in both legs. Neurological: The patient is alert and oriented x3. Moves 4 extremities. DISCHARGE DISPOSITION: Home to self-care. LIST OF MEDICATIONS: We are going to prescribe the following medications to this patient. 1. Cardizem CD 180 mg 1 tablet p.o. daily. 2. We will continue with metoprolol 50 mg 1 tablet p.o. b.i.d. cc: Thomas Singer MD
== END 2019-10-11 10:45 | disposition home health service (06) | DRG 309 ==
LOC: P.ED 11:11 → ICU 18:11 → SUATTDRO 18:11 → ICU 19:23
PROVIDERS: ATTEND Internal Medicine